=== PATIENT | female | born 1935 | race Caucasian/White ===

== ENCOUNTER 2016-10-04 07:31 | Day surgery (SDC) | payer MEDICARE, BC, OTHER ==
[~2016-10-04] VITALS: Ht 165.1 cm; Wt 61.7 kg
[~2016-10-04 07:31] MED LIST: ADVIL200 MG PO; ALMACONE 360 M360 ML PO; ASPIRIN 81M81 MG/TA2 PO; BIOTIN1 POW; CALTRATE-600 W600 MG PO; CARAFATE 1GM1 G PO; COZAAR 50MG50 MG/TAB PO; FLAX OIL1000 MG; IMODIUM 2MG CAPS2 MG PO; LEVBID0.375 MG; METAMUCIL3.4 GM/DOS; MULTI VITAMINS1 TAB PO; PRILOSEC 20MG20 MG PO; PROBIOTIC-MAJOR PO; TOPROL XL 25MG25 MG PO; XARELTO STARTER20 MG PO; XARELTO20 MG PO
[2016-10-04 08:27] VITALS: BP 141/73; PULSE 70; TEMP 98
[2016-10-04] MEDS ORDERED: TEMOVATE0.05% TP (08:41)
[2016-10-04] MEDS ORDERED: TOBRADEX EYE O3.5 GM OP (08:42)
[2016-10-04] MEDS ORDERED: TRIAMCINOLONE A15 G1 TP (08:43)
[2016-10-04] MEDS ORDERED: TYLENOL 500MG500 MG PO (08:44)
[2016-10-04] MEDS ORDERED: ALMACONE 360 M360 ML PO (08:46)
[2016-10-04] MEDS ORDERED: PROBIOTIC FORMU1 CAP PO (08:47)
[2016-10-04] MEDS ORDERED: COZAAR100 MG PO (08:50)
[2016-10-04] MEDS ORDERED: TESSALON PERLE200 MG PO (08:52)
[2016-10-04] MEDS ORDERED: MUCINEX DM 30 M1 TE1 (08:54)
[2016-10-04] MEDS ORDERED: XIFAXAN550 MG PO (08:55)
[2016-10-04] MEDS ORDERED: LASIX 20MG TABL20 MG PO (08:56)
[2016-10-04 10:18] VITALS: BP 122/55; PULSE 70; TEMP 97.4
[2016-10-04 10:35] VITALS: BP 135/60; PULSE 70
[2016-10-04 10:50] VITALS: BP 138/58; PULSE 70
[2016-10-04 11:05] VITALS: BP 133/68; PULSE 70
[2016-10-04 11:20] VITALS: BP 145/78; PULSE 70
== END 2016-10-04 11:50 | disposition home or self-care (01) ==
LOC: SDCO 07:31
DX: M71.342 Other bursal cyst, left hand (principal); M25.742 Osteophyte, left hand
CPT/HCPCS: J0690; J2704; J3010; J7120

== ENCOUNTER → 2016-10-17 | Outpatient (CLI) | payer MEDICARE, BC, OTHER ==
[~2016-10-17] MED LIST changes: +COZAAR100 MG PO; +LASIX 20MG TABL20 MG PO; +MUCINEX DM 30 M1 TE1; +PROBIOTIC FORMU1 CAP PO; +TEMOVATE0.05% TP; +TESSALON PERLE200 MG PO; +TOBRADEX EYE O3.5 GM OP; +TRIAMCINOLONE A15 G1 TP; +TYLENOL 500MG500 MG PO; +XIFAXAN550 MG PO
== END ==
LOC: MC.RAD 10-05 15:00
DX: Z12.31 Encounter for screening mammogram for malignant neoplasm of breast (principal); Z80.3 Family history of malignant neoplasm of breast

== ENCOUNTER 2017-03-15 10:51 | Emergency (ER) | payer MEDICARE, BC, OTHER ==
[~2017-03-15] VITALS: Ht 165.1 cm; Wt 63.6 kg
[2017-03-15 10:54] VITALS: TEMP 98.5
[2017-03-15 11:42] LABS: ADJUSTED CALCIUM 9.3 mg/dL (8.4-10.2); ALANINE AMINOTRANSFERASE 35 U/L (9-52); ALKALINE PHOSPHATASE 72 U/L (50-136); ANION GAP 9 mmol/L (7-16); BILIRUBIN,TOTAL 0.9 mg/dL (0.0-1.0); BLOOD UREA NITROGEN 22 mg/dL (7-17); CALCIUM 9.3 mg/dL (8.4-10.2); CARBON DIOXIDE 30 mmol/L (22-30); CHLORIDE 100 mmol/L (98-107); CREATININE, serum 0.85 mg/dL (0.52-1.25); GLUCOSE 90 mg/dL (74-106); LIPASE 44 U/L (23-300); POTASSIUM 4.1 mmol/L (3.4-5.0); SODIUM 139 mmol/L (137-145); TOTAL PROTEIN 6.8 gm/dL (6.4-8.2)
[2017-03-15 11:44] LABS: BASO % 0.3 % (0.0-2.0); EOS # 0.1 (0.0-0.7); EOS % 0.7 % (0-4.0); GRAN # 4.6 (1.4-6.5); GRAN % 66.9 % (42.2-75.2); HEMATOCRIT 41.4 % (37.0-47.0); HEMOGLOBIN 14.2 g/dl (12.5-16.0); LYMPH # 1.5 (1.2-3.4); LYMPH % 22.5 % (20.0-51.0); MEAN CELL VOLUME 98 fl (80.0-100.0); MEAN CORPUSCULAR HEMOGLOBIN 34 pg (27.0-31.0); MEAN CORPUSCULAR HGB CONC 34 g/dl (33.0-37.0); MEAN PLATELET VOLUME 9.9 fl (7.4-10.4); MONO # 0.6 (0.1-0.6); MONO % 9.3 % (1.7-9.3); PLATELET COUNT 181 K/mm3 (130-400); RED BLOOD COUNT 4.24 M/mm3 (4.10-5.30); REDCELL DISTRIBUTION WIDTH-CV 12.8 % (11.5-14.5); WHITE BLOOD COUNT 6.8 K/mm3 (4.8-10.8)
[2017-03-15 11:54] LABS: B-TYPE NATRIURETIC PEPTIDE 1270 pg/mL (0-450)
[2017-03-15 11:56] LABS: TROPONIN-I < 0.012 ng/mL (0.000-0.034)
[2017-03-15 14:50] VITALS: BP 131/54; PULSE 75
== END 2017-03-15 14:52 | disposition home or self-care (01) ==
LOC: COL.ER 10:51
PROVIDERS: Emergency Medicine
DX: R07.9 Chest pain, unspecified (principal); R07.1 Chest pain on breathing; I10 Essential (primary) hypertension; Z95.0 Presence of cardiac pacemaker; Z87.891 Personal history of nicotine dependence
CPT/HCPCS: Q9967

== ENCOUNTER → 2017-11-07 | Outpatient (CLI) | payer MEDICARE, BC, OTHER | LOC: MC.RAD 09:00 | DX: Z12.31 Encounter for screening mammogram for malignant neoplasm of breast (principal) ==

== ENCOUNTER → 2018-03-19 | Outpatient (CLI) | payer MEDICARE, BC, OTHER | LOC: MC.RAD 13:53 | DX: N63.10 Unspecified lump in the right breast, unspecified quadrant (principal) ==

== ENCOUNTER → 2018-06-27 | Outpatient (CLI) | payer MEDICARE, BC, OTHER ==
[2018-06-27 15:27] LABS: CALCIUM 9.2 mg/dL (8.4-10.2); CREATININE, serum 0.88 mg/dL (0.52-1.25); POTASSIUM 4.1 mmol/L (3.4-5.0)
== END ==
LOC: COL.LAB 14:17
PROVIDERS: Internal Medicine Cardiovascular Disease
DX: I48.2 Chronic atrial fibrillation (principal); Z79.899 Other long term (current) drug therapy

== ENCOUNTER → 2018-10-07 | Outpatient (CLI) | payer MEDICARE, BC, OTHER | LOC: MC.RAD 11:04 | DX: N64.89 Other specified disorders of breast (principal) | CPT/HCPCS: G0279 ==

== ENCOUNTER 2019-03-09 13:54 | Outpatient (RCR) | payer MEDICARE, BC, OTHER ==
[~2019-03-09 13:54] MED LIST changes: -IMODIUM 2MG CAPS2 MG PO; +IMODIUM MULTI-S1 TAB PO; -LASIX 20MG TABL20 MG PO; +LASIX 40MG TABL40 MG PO; -METAMUCIL3.4 GM/DOS; +METAMUCIL3.4 GM/DOS PO
[2019-04-14] MEDS ORDERED: NATURE'S BLE1000 MCG PO (08:25)
[2019-04-14] MEDS ORDERED: LEVBID0.375 MG PO (08:29)
[2019-04-14] MEDS ORDERED: COZAAR 50MG50 MG/TAB PO (08:31)
[2019-04-14] MEDS ORDERED: TOPROL XL 25MG25 MG PO (08:32)
[2019-04-14] MEDS ORDERED: PRILOTC PO (08:34)
[2019-04-14] MEDS ORDERED: ZANTAC 150MG T150 MG PO (08:37)
[2019-04-14] MEDS ORDERED: COLCRYS0.6 MG PO (08:38)
[2019-04-14] MEDS ORDERED: ALMACONE 360 M360 ML PO (08:39)
[2019-04-14] MEDS ORDERED: LACTAID ULTRA9000 U PO (08:40)
[2019-05-04] MEDS ORDERED: ALDACTONE 25MG25 M1 PO (07:10)
[2019-05-04] MEDS ORDERED: CENTRUM1 TA1 PO (07:15)
[2019-05-04] MEDS ORDERED: XARELTO15 MG PO (07:19)
[2019-05-04] MEDS ORDERED: VENTOLIN0.09 MG IH (07:24)
[2019-05-04] MEDS ORDERED: XIFAXAN550 MG PO (07:25)
== END 2019-06-07 | disposition home or self-care (01) ==
LOC: COL.CR
DX: Z48.812 Encounter for surgical aftercare following surgery on the circulatory system (principal); I34.0 Nonrheumatic mitral (valve) insufficiency

== ENCOUNTER 2019-03-31 17:10 | Emergency (ER) | payer MEDICARE, BC, OTHER ==
[~2019-03-31] VITALS: Ht 165.1 cm; Wt 63.5 kg
[2019-03-31 17:16] VITALS: TEMP 98.7
[2019-03-31 18:16] LABS: INR 4.4 (0.8-3.0)
[2019-03-31 18:19] LABS: PARTIAL THROMBOPLASTIN TIME 43.8 SECONDS (26.0-37.0)
[2019-03-31 18:23] LABS: ALBUMIN 3.6 gm/dL (3.5-5.0); BILIRUBIN,TOTAL 1.2 mg/dL (0.0-1.0); CALCIUM 8.8 mg/dL (8.4-10.2); CREATININE, serum 1.05 (0.52-1.25); POTASSIUM 4.4 mmol/L (3.4-5.0); TOTAL PROTEIN 6.8 gm/dL (6.4-8.2)
[2019-03-31 18:24] LABS: PROTHROMBIN TIME 54.1 SECONDS (9.7-12.8)
[2019-03-31 18:34] LABS: C-REACTIVE PROTEIN 22.6 mg/dL (0.0-0.9)
[2019-03-31 21:10] VITALS: BP 125/65; PULSE 69
== END 2019-03-31 21:05 | disposition short-term general hospital (02) ==
LOC: COL.ER 17:10
PROVIDERS: Emergency Medicine
DX: I31.3 Pericardial effusion (noninflammatory) (principal); J90 Pleural effusion, not elsewhere classified; I50.9 Heart failure, unspecified; I48.91 Unspecified atrial fibrillation; I10 Essential (primary) hypertension; Z90.710 Acquired absence of both cervix and uterus; Z95.0 Presence of cardiac pacemaker; Z79.82 Long term (current) use of aspirin

== ENCOUNTER → 2019-03-31 | Outpatient (CLI) | payer MEDICARE, BC, OTHER ==
[~2019-03-31] MED LIST changes: +IMODIUM 2MG CAPS2 MG PO; -IMODIUM MULTI-S1 TAB PO; +LASIX 20MG TABL20 MG PO; -LASIX 40MG TABL40 MG PO; +METAMUCIL3.4 GM/DOS; -METAMUCIL3.4 GM/DOS PO
[2019-03-31 16:35] LABS: HEMOGLOBIN 10.5 g/dl (12.5-16.0); MEAN CELL VOLUME 84 fl (80.0-100.0); MEAN CORPUSCULAR HEMOGLOBIN 26 pg (27.0-31.0); MEAN CORPUSCULAR HGB CONC 31 g/dl (33.0-37.0); MEAN PLATELET VOLUME 9.8 fl (7.4-10.4); PLATELET COUNT 416 K/mm3 (130-400); RED BLOOD COUNT 4.08 M/mm3 (4.10-5.30)
[2019-03-31 16:41] LABS: HEMATOCRIT 34.1 % (37.0-47.0)
[2019-03-31 16:53] LABS: TROPONIN-I < 0.012 ng/mL (0.000-0.035)
[2019-03-31 18:30] LABS: HYPOCHROMIA 1+; LYMPHOCYTE 6 % (20.0-51.0); MICROCYTOSIS 1+; NEUTROPHILS 91 % (42.0-75.2); PLATELET ESTIMATE INCREASED (NORMAL)
== END ==
LOC: COL.RAD 14:59
PROVIDERS: Family Medicine
DX: I31.3 Pericardial effusion (noninflammatory) (principal); J90 Pleural effusion, not elsewhere classified
CPT/HCPCS: Q9967

== ENCOUNTER 2019-04-14 07:10 | Outpatient (CLI) | payer MEDICARE, BC, OTHER ==
[~2019-04-14] VITALS: Ht 165.1 cm; Wt 59.6 kg
[2019-04-14] MEDS ORDERED: BIOTIN10000 MC1 PO (08:25)
[2019-04-14] MEDS ORDERED: LEVBID0.375 MG PO (08:29)
[2019-04-14] MEDS ORDERED: COZAAR 50MG50 MG/TAB PO (08:31)
[2019-04-14] MEDS ORDERED: TOPROL XL 25MG25 MG PO (08:32)
[2019-04-14] MEDS ORDERED: PRILOTC PO (08:34)
--- NOTE | 2019-04-14 08:35 | NUR ---
Patient returns to room 8 per cart and thoracentesis not needed. Patient dresses self and awaits dismissal instructions.
[2019-04-14] MEDS ORDERED: ZANTAC 150MG T150 MG PO (08:37)
[2019-04-14] MEDS ORDERED: COLCRYS0.6 MG PO (08:38)
[2019-04-14] MEDS ORDERED: ALMACONE 360 M360 ML PO (08:39)
[2019-04-14] MEDS ORDERED: LACTAID ULTRA9000 U PO (08:40)
--- NOTE | 2019-04-14 08:56 | NUR ---
Patient dismissed to home ambulatory accompanied by spouse with dismissal instructions.
[2019-04-14 09:14] VITALS: BP 134/61; PULSE 71; TEMP 97.8
== END 2019-04-14 08:56 | disposition home or self-care (01) ==
LOC: SDCO 07:10
DX: J90 Pleural effusion, not elsewhere classified (principal); K21.9 Gastro-esophageal reflux disease without esophagitis; I34.0 Nonrheumatic mitral (valve) insufficiency; I47.2 Ventricular tachycardia; K58.9 Irritable bowel syndrome, unspecified; I31.3 Pericardial effusion (noninflammatory); I27.20 Pulmonary hypertension, unspecified; Z88.1 Allergy status to other antibiotic agents; Z88.5 Allergy status to narcotic agent; Z88.8 Allergy status to other drugs, medicaments and biological substances; Z88.2 Allergy status to sulfonamides; Z88.3 Allergy status to other anti-infective agents; Z88.6 Allergy status to analgesic agent; Z79.82 Long term (current) use of aspirin; Z79.01 Long term (current) use of anticoagulants; Z82.49 Family history of ischemic heart disease and other diseases of the circulatory system; Z82.5 Family history of asthma and other chronic lower respiratory diseases; Z80.9 Family history of malignant neoplasm, unspecified; Z90.710 Acquired absence of both cervix and uterus

== ENCOUNTER 2019-05-04 06:36 | Day surgery (SDC) | payer MEDICARE, BC, OTHER ==
[~2019-05-04] VITALS: Ht 165.1 cm; Wt 60.0 kg
[~2019-05-04 06:36] MED LIST changes: -ALDACTONE 25MG25 M1 PO; -CENTRUM1 TA1 PO; -VENTOLIN0.09 MG IH; -XARELTO15 MG PO
[2019-05-04] MEDS ORDERED: ALDACTONE 25MG25 M1 PO (07:10)
[2019-05-04] MEDS ORDERED: CENTRUM1 TA1 PO (07:15)
[2019-05-04] MEDS ORDERED: XARELTO15 MG PO (07:19)
[2019-05-04] MEDS ORDERED: VENTOLIN0.09 MG IH (07:24)
[2019-05-04] MEDS ORDERED: XIFAXAN550 MG PO (07:25)
[2019-05-04 07:37] VITALS: BP 152/49; PULSE 70; TEMP 97.9
[2019-05-04 08:30] VITALS: BP 134/50; PULSE 69; TEMP 97.7
--- NOTE | 2019-05-04 08:40 | NUR ---
Patient's spouse brought to bedside at this time.
[2019-05-04 08:45] VITALS: BP 145/89; PULSE 61
--- NOTE | 2019-05-04 08:45 | NUR ---
Radiology into see patient at this time.
[2019-05-04 09:00] VITALS: BP 145/44; PULSE 70
--- NOTE | 2019-05-04 09:00 | NUR ---
Chaplain Lucero mead see patient at this time.
--- NOTE | 2019-05-04 09:05 | NUR ---
On the phone with Dr Serna at this time. He reviews patient's portable chest x-ray and determines patient can be discharged to home at this time.
[2019-05-04 09:07] LABS: PLEURAL FLUID RBC 1000 /mm3 (0-0); PLEURAL FLUID WBC 687 /mm3
[2019-05-04 09:09] LABS: PLEURAL FLUID APPEARANCE CLEAR; PLEURAL FLUID COLOR YELLOW
--- NOTE | 2019-05-04 09:15 | NUR ---
Dismissal instructions gone over with patient and patient's spouse. Both verbalize understanding and all questions answered.
--- NOTE | 2019-05-04 09:20 | NUR ---
Patient dismissed to patient enterance via ambulation with spouse. Patient and spouse leave thanking staff for services.
[2019-05-04 09:22] LABS: GLUCOSE,PLEURAL FLUID 97 mg/dL; TOTAL PROTEIN,PLEURAL FLUID 2.3 gm/dL
== END 2019-05-04 09:20 | disposition home or self-care (01) ==
LOC: SDCO 06:36 → EDSTATUS 08:00 → SDCO 08:00
PROVIDERS: Internal Medicine Pulmonary Disease
DX: J90 Pleural effusion, not elsewhere classified (principal); I27.20 Pulmonary hypertension, unspecified; I50.9 Heart failure, unspecified; K21.9 Gastro-esophageal reflux disease without esophagitis; K58.9 Irritable bowel syndrome, unspecified; Z88.1 Allergy status to other antibiotic agents; Z88.5 Allergy status to narcotic agent; Z88.2 Allergy status to sulfonamides; Z88.3 Allergy status to other anti-infective agents; Z88.8 Allergy status to other drugs, medicaments and biological substances; Z85.828 Personal history of other malignant neoplasm of skin; Z87.891 Personal history of nicotine dependence; Z79.02 Long term (current) use of antithrombotics/antiplatelets; Z79.82 Long term (current) use of aspirin; Z80.9 Family history of malignant neoplasm, unspecified; Z82.49 Family history of ischemic heart disease and other diseases of the circulatory system; Z90.710 Acquired absence of both cervix and uterus
CPT/HCPCS: 19804

== ENCOUNTER → 2019-05-04 | Outpatient (CLI) | payer MEDICARE, BC, OTHER ==
[~2019-05-04] MED LIST changes: +ALDACTONE 25MG25 M1 PO; +CENTRUM1 TA1 PO; +COLCRYS0.6 MG PO; -IMODIUM 2MG CAPS2 MG PO; +IMODIUM MULTI-S1 TAB PO; +LACTAID ULTRA9000 U PO; -LASIX 20MG TABL20 MG PO; +LASIX 40MG TABL40 MG PO; +LEVBID0.375 MG PO; -METAMUCIL3.4 GM/DOS; +METAMUCIL3.4 GM/DOS PO; +NATURE'S BLE1000 MCG PO; +PRILOTC PO; +VENTOLIN0.09 MG IH; +XARELTO15 MG PO; +ZANTAC 150MG T150 MG PO
--- NOTE | 2019-05-04 09:12 | NUR ---
Initial visit; Patient and thanked Lot Porter for offering encouragement and prayer following a procedure with another to come later today.
== END ==
LOC: COL.RAD 13:56
DX: I51.7 Cardiomegaly (principal); I28.8 Other diseases of pulmonary vessels

== ENCOUNTER → 2019-05-08 | Outpatient (CLI) | payer MEDICARE, BC, OTHER ==
[~2019-05-08] MED LIST changes: +ALDACTONE 25MG25 M1 PO; +CENTRUM1 TA1 PO; +VENTOLIN0.09 MG IH; +XARELTO15 MG PO
[2019-05-08 16:33] LABS: BASO # 0.1 (0.0-0.2); BASO % 0.4 % (0.0-2.0); EOS # 0.1 (0.0-0.7); EOS % 0.7 % (0-4.0); GRAN # 9.3 (1.4-6.5); GRAN % 75.8 % (42.2-75.2); LYMPH # 1.4 (1.2-3.4); LYMPH % 11.4 % (20.0-51.0); MEAN CELL VOLUME 83 fl (80.0-100.0); MEAN CORPUSCULAR HGB CONC 30 g/dl (33.0-37.0); MEAN PLATELET VOLUME 9.7 fl (7.4-10.4); MONO # 1.4 (0.1-0.6); MONO % 11.2 % (1.7-9.3); PLATELET COUNT 477 K/mm3 (130-400); RED BLOOD COUNT 3.99 M/mm3 (4.10-5.30); REDCELL DISTRIBUTION WIDTH-CV 18.4 % (11.5-14.5)
[2019-05-08 16:46] LABS: CALCIUM 9.3 mg/dL (8.4-10.2); CREATININE, serum 0.94 (0.52-1.25); POTASSIUM 5.2 mmol/L (3.4-5.0)
[2019-05-08 16:54] LABS: HEMOGLOBIN 9.9 g/dl (12.5-16.0); MEAN CORPUSCULAR HEMOGLOBIN 25 pg (27.0-31.0)
== END ==
LOC: ZCOL.LAB 15:55
PROVIDERS: Nurse Practitioner Family
DX: J90 Pleural effusion, not elsewhere classified (principal)

== ENCOUNTER → 2019-05-08 | Outpatient (CLI) | payer MEDICARE, BC, OTHER | LOC: COL.RAD 15:00 | DX: I31.3 Pericardial effusion (noninflammatory) (principal); J90 Pleural effusion, not elsewhere classified | CPT/HCPCS: Q9967 ==

== ENCOUNTER → 2019-08-31 | Outpatient (CLI) | payer MEDICARE, BC, OTHER | LOC: COL.VAS 11:58 | DX: I27.20 Pulmonary hypertension, unspecified (principal); I08.1 Rheumatic disorders of both mitral and tricuspid valves; Z98.890 Other specified postprocedural states ==

== ENCOUNTER → 2019-10-13 | Outpatient (CLI) | payer MEDICARE, BC, OTHER | LOC: MC.RAD 11:30 | DX: Z12.31 Encounter for screening mammogram for malignant neoplasm of breast (principal) ==

== ENCOUNTER → 2020-10-20 | Outpatient (CLI) | payer MEDICARE, BC, OTHER ==
[~2020-10-20] MED LIST changes: +TRELEGY ELLIPT1 EACH IH
== END ==
LOC: MC.RAD 13:30
DX: Z12.31 Encounter for screening mammogram for malignant neoplasm of breast (principal)

== ENCOUNTER 2020-10-21 09:16 | Day surgery (SDC) | payer MEDICARE, BC, OTHER ==
[~2020-10-21] VITALS: Ht 165.1 cm; Wt 54.7 kg
[~2020-10-21 09:16] MED LIST changes: -TRELEGY ELLIPT1 EACH IH
[2020-10-21 10:23] VITALS: BP 142/48; PULSE 69; TEMP 97.6
[2020-10-21] MEDS ORDERED: TRELEGY ELLIPT1 EACH IH (10:34)
[2020-10-21 11:10] VITALS: BP 122/46; PULSE 71; TEMP 97.8
[2020-10-21 11:15] VITALS: BP 123/48; PULSE 70
[2020-10-21 11:30] VITALS: BP 140/47; PULSE 70
[2020-10-21 11:45] VITALS: BP 133/50; PULSE 70
[2020-10-21 12:00] VITALS: BP 126/41; PULSE 70
--- NOTE | 2020-10-21 15:18 | NUR ---
PT RETURNED FROM THE OR INTO BAY #2. PT AWAKE AND SLEEPY. ORIENTATED TO PLACE AND PERSON. PT DENIES PAIN AT THIS TIME. VSS, AFEBRILE. LUNGS CLEAR, HRR AND PACED AT 70BPM. BOWEL SOUNDS PRESENT. PT REQUESTS WATER AND ORANGE JUICE. PT DENIES NAUSEA AT THIS TIME. DAUGHTER, ELVIN AT BEDSIDE. WILL CONT TO MONITOR.
--- NOTE | 2020-10-21 15:22 | NUR ---
PT TOLERATING FLUIDS WITHOUT DIFFICULTY. PT DENIES WANTING FOOD. PT STATES,' I WANT TO EAT AT HOME'. DENIES PAIN OR NAUSEA AT THIS TIME. WILL MONITOR PROGRESS.
--- NOTE | 2020-10-21 15:26 | NUR ---
PT IS AWAKE AND ORIENTATED. CONTINUES TO TOLERATE FLUIDS WITHOUT NAUSEA OR VOMITING. DENIES PAIN. PT UP TO THE BATHROOM WITHOUT DIFFICULTY, GAIT STEADY. PT VOIDED WITHOUT DIFFICULTY. PT STATED SEEING ALITTLE BLOOD ON HER DIAMOND-PAD. PT STATES A SMALL AMOUNT OF BLOOD NOTED; DENIES PAIN. IV DC'D TO RIGHT FOREARM, PT TOLERATED WELL. DISMISSAL INSTRUCTIONS GIVEN, PT DENIES QUESTIONS. PT WAS DISCHARGED TO PT FAMILY VEHICLE. DAUGHTER, ELVIN WAS DRIVING.
== END 2020-10-21 12:30 | disposition home or self-care (01) ==
LOC: SDCO 09:16
DX: L72.0 Epidermal cyst (principal); C44.329 Squamous cell carcinoma of skin of other parts of face; C44.729 Squamous cell carcinoma of skin of left lower limb, including hip; C44.622 Squamous cell carcinoma of skin of right upper limb, including shoulder; J44.9 Chronic obstructive pulmonary disease, unspecified; Z20.822 Contact with and (suspected) exposure to COVID-19; I38 Endocarditis, valve unspecified; K21.9 Gastro-esophageal reflux disease without esophagitis; K58.9 Irritable bowel syndrome, unspecified; M19.90 Unspecified osteoarthritis, unspecified site; Z95.0 Presence of cardiac pacemaker; Z87.891 Personal history of nicotine dependence; Z79.82 Long term (current) use of aspirin; Z79.899 Other long term (current) drug therapy; Z79.01 Long term (current) use of anticoagulants; Z80.3 Family history of malignant neoplasm of breast; Z80.0 Family history of malignant neoplasm of digestive organs; Z94.7 Corneal transplant status; Z88.1 Allergy status to other antibiotic agents; Z88.5 Allergy status to narcotic agent; Z88.2 Allergy status to sulfonamides; Z88.8 Allergy status to other drugs, medicaments and biological substances
CPT/HCPCS: J2704; J7120

== ENCOUNTER 2022-06-27 14:01 | Observation (INO) | payer MEDICARE, BC, OTHER ==
[~2022-06-27] VITALS: Ht 165.1 cm; Wt 54.5 kg
[~2022-06-27 14:01] MED LIST changes: +TRELEGY ELLIPT1 EACH IH
[2022-06-27 17:30] VITALS: BP 132/48; PULSE 69; TEMP 98.1
[2022-06-27 18:22] LABS: BASO % 0.5 % (0.0-2.0); EOS % 0.6 % (0.0-4.0); GRAN # 4.6 K/mm3 (1.4-6.5); GRAN % 69.8 % (42.2-75.2); LYMPH # 1.2 K/mm3 (1.2-3.4); LYMPH % 18.5 % (20.0-51.0); MEAN CELL VOLUME 99 fl (80.0-100.0); MEAN CORPUSCULAR HEMOGLOBIN 33 pg (27-31); MEAN CORPUSCULAR HGB CONC 34 g/dl (33.0-37.0); MEAN PLATELET VOLUME 9.7 fl (7.4-10.4); MONO # 0.7 K/mm3 (0.1-0.6); MONO % 10.3 % (1.7-9.3); PLATELET COUNT 219 K/mm3 (130-400); RED BLOOD COUNT 2.99 M/mm3 (4.10-5.30); REDCELL DISTRIBUTION WIDTH-CV 12.8 % (11.5-14.5); RETIC % 3.5 % (0.5-3.52)
[2022-06-27 18:23] LABS: HEMATOCRIT 29.6 % (37.0-47.0)
[2022-06-27 18:30] LABS: CREATININE, serum 0.86 mg/dL (0.57-1.11); MAGNESIUM 1.9 mg/dL (1.6-2.6); POTASSIUM 4.6 mmol/L (3.5-4.5)
[2022-06-27 19:44] VITALS: BP 139/49; PULSE 70; TEMP 98.5
[2022-06-27 23:51] VITALS: BP 145/51; PULSE 70; TEMP 98.2
[2022-06-28] VITALS (10 sets, daily range): BP systolic 115–145; BP diastolic 40–369; PULSE 69–70; TEMP 97.8–99.2
--- NOTE | 2022-06-28 01:26 | NUR ---
PT STATES THAT SHE HAD ALREADY TAKEN HER DAILY MED AND "THE TREATMENT WOULD BE A WASTE OF TIME." STATED THAT SHE DID NOT WANT IT AT THIS TIME.
[2022-06-28 06:28] LABS: HEMATOCRIT 27.2 % (37.0-47.0); HEMOGLOBIN 8.8 g/dl (12.5-16.0)
--- NOTE | 2022-06-28 06:45 | NUR ---
THE PATIENT HAD AN UNEVENTFUL NIGHT. SHE DID FINISH HER INITIAL MIRALAX BOWELPREP LAST NIGHT, AND HAS BEEN HAVING BOWEL MOVEMENTS THROUGH THE NIGHT. PATIENT DOES STATE THEY ARE NOT YET CLEAR. SHE HAS ANOTHER DOSE DUE AT 11AM, 4 HOURS PRIOR TO HER COLONOSCOPY. CONSENT WAS COMPLETED. NO OTHER CONCERNS.
[2022-06-28 06:49] LABS: CALCIUM 8.2 mg/dL (8.4-10.2); CREATININE, serum 0.75 mg/dL (0.57-1.11); MAGNESIUM 1.8 mg/dL (1.6-2.6); POTASSIUM 3.9 mmol/L (3.5-4.5)
--- NOTE | 2022-06-28 07:55 | NUR ---
PATIENT AWAKE, ALERT AND ORIENTED. NO NEEDS OR COMPLAINTS AT THIS TIME. NO N/V DURING BOWL PREP. WILL CONT TO MONITOR.
--- NOTE | 2022-06-28 10:01 | NUR ---
Initial visit; Patient thanked Switchboard Wire Worker Helper for looking in on her, visiting and keeping her in Switchboard Wire Worker Helper's prayers. Switchboard Wire Worker Helper offered God's blessings.
--- NOTE | 2022-06-28 10:28 | NUR ---
Business Performance Specialist met with patient to discuss discharge planning. Patient lives in [place] with her , Shukri (ph#[phone]) and sees Dr. Ruiz for primary care. Patient normally obtains medications from [facility] pharmacy but reported that her insurance [facility] Patient reports sometimes her medications are expensive but that they can afford them. Patpient does not use any DME and is normally independent with [facility]. Patient reports her daughters, Nirali and Shauna are designated as DPOA-HC. Patient plans to return home at time of discharge. Discharge Plan: Home
--- NOTE | 2022-06-28 15:52 | NUR ---
PATIENT LEAVIGN WITH [facility] TO PRE OP.
--- NOTE | 2022-06-28 18:45 | NUR ---
THE PATIENT HAS POST OP'D AND IS READY TO GO. DISCHARGE IS COMPLETED. WILL GO OVER INFORMATION AND WALK HER OUT.
--- NOTE | 2022-06-28 20:10 | NUR ---
THE PATIENT HAS DISCHARGED AT THIS TIME.
== END 2022-06-28 20:10 | disposition home or self-care (01) ==
LOC: SURG 15:00 → MEDICAL 17:04 → EDSTATUS 06-28 15:00 → SDCO 06-28 15:00 → MEDICAL 06-28 20:10
PROVIDERS: ADMIT Internal Medicine
DX: K55.20 Angiodysplasia of colon without hemorrhage (principal); K57.30 Diverticulosis of large intestine without perforation or abscess without bleeding; K64.0 First degree hemorrhoids; K44.9 Diaphragmatic hernia without obstruction or gangrene; D50.0 Iron deficiency anemia secondary to blood loss (chronic); I48.0 Paroxysmal atrial fibrillation
CPT/HCPCS: G0378; J2704; J7030